=== PATIENT | male | born 1965 | race Caucasian/White ===

== ENCOUNTER → 2018-01-26 | Day surgery (SDC) | payer BC ==
[2018-01-10 15:32] LABS: BASOPHILS # (AUTO) 0.1 (0.0-0.1); BASOPHILS % 0.5 % (0.0-1.0); EOSINOPHILS # (AUTO) 0.3 (0.0-0.4); EOSINOPHILS % 2.5 % (0.0-6.0); HEMATOCRIT 43.5 % (38.2-49.6); HEMOGLOBIN 14.5 g/dL (14.0-18.0); LYMPHOCYTES # (AUTO) 2.2 (1.0-3.2); LYMPHOCYTES % 17.2 % (18.0-39.1); MEAN CORPUSCULAR HEMOGLOBIN 28.8 pg (28-32); MEAN CORPUSCULAR HGB CONC 33.3 g/dL (31-35); MEAN CORPUSCULAR VOLUME 86.5 fL (81-99); MONOCYTES # (AUTO) 0.6 (0.2-0.8); MONOCYTES % 4.6 % (4.4-11.3); NEUTROPHILS # (AUTO) 9.6 (2.1-6.9); PLATELET COUNT 188 x10e3/uL (140-360); RED BLOOD COUNT 5.03 x10e6/uL (4.3-5.7); RED CELL DISTRIBUTION WIDTH 13.2 % (11.7-14.4)
[2018-01-10 15:45] LABS: ANION GAP 12.9 mmol/L (8-16); BLOOD UREA NITROGEN 17 mg/dL (7-26); BUN/CREATININE RATIO 16 (6-25); CALCIUM 9.3 mg/dL (8.4-10.2); CARBON DIOXIDE 29 mmol/L (22-29); CHLORIDE 103 mmol/L (98-107); CREATININE, SERUM 1.07 mg/dL (0.72-1.25); EST GLOMERULAR FILTRATION RATE > 60 ML/MIN (60-); GLUCOSE 103 mg/dL (74-118); POTASSIUM 3.9 mmol/L (3.5-5.1); SODIUM 141 mmol/L (136-145)
[~2018-01-26] MED LIST: ACETAMINOPHEN/CODEINE 300MG - 30MG TAB ONE; AMBIEN10 MG PO; ASPIRIN81 MG PO; ATENOLOL100 MG PO; ATROPINE SULFATE 0.1 MG/ML 10ML SYR ONE; BACITRACIN 50,000 UNIT VIAL ONE; BUPIVACAINE 0.25%/EPI 30ML SDV INJ ONE; CEFAZOLIN SOD 1 GM VIAL ONE; DEXAMETHASONE SOD PHOS INJ 4 MG/ML VIAL ONE; FENTANYL CITRATE/PF 100MCG/2 ML INJ ONE; LIDOCAINE HCL 2% LOCAL INJ 5 ML SDV VIAL INJ ONE; MIDAZOLAM HCL 2 MG/2 ML VIAL ONE; PRAVASTATIN SOD40 MG; PROPOFOL IV EMULSION 10 MG/ML 20 ML VIAL ONE; Z.0.CLONAZEPAM2 MG PO; Z.0.LISINOPRIL10 MG PO; Z.0.PRAVACHOL40 MG PO; Z.0.TOPROL XL25 MG
--- NOTE | 2018-01-26 09:45 | Operative Report ---
DATE OF PROCEDURE: January 26, 2018 PREOPERATIVE DIAGNOSIS: Ventral hernia. POSTOPERATIVE DIAGNOSIS: Ventral hernia. PROCEDURE PERFORMED: Repair of ventral hernia with the Proceed ventral patch, medium size. ANESTHESIA: General. [employer] DEVELOPER: Vanessa Mulligan ESTIMATED BLOOD LOSS: Minimal. DRAINS: None. COMPLICATIONS: None. INDICATIONS AND FINDINGS: The patient is a 52-year-old male who complains of a bulge located superior to the umbilicus for several years, now developed more pain. INTRAOPERATIVE FINDINGS: The patient had a ventral hernia located in the epigastric region superior to and separate from the umbilicus. There was no evidence of umbilical herniation. The defect contained fat and a sac that was empty. The Proceed ventral patch, medium size, was deployed intra-abdominally covering the defect with ample margins in all directions. DESCRIPTION OF PROCEDURE: With the patient lying on the operating table in the supine position, after administration of general anesthesia, he was prepped and draped for repair of an epigastric ventral hernia. An incision was made vertically superior to the umbilicus, and the dissection was carried down until the hernia was identified. It was dissected free from the surrounding tissues. It consisted of a sac with properitoneal fat. All of that was excised. Then the intra-abdominal cavity was entered. Then the Proceed ventral patch mesh was deployed with the mesh laying intra-abdominally flush against the abdominal wall. The mesh was then secured with the straps to the fascia using 2-0 Ethibond suture. Several extra Ethibond stitches were placed in the upper and lower parts of the incision to prevent any herniation and further secure the mesh to the fascia. A Valsalva maneuver was then given, and the mesh was laying flush against the abdominal wall. We cut the excess straps and then loosely approximated the fascia over the mesh to create another barrier to the exterior. Local infiltration was given with 0.25% Marcaine with epinephrine. The wound was irrigated and then closed in layers using 2-0 catgut for the soft tissues. The skin was closed using gildardo. A sterile dressing was applied. The patient tolerated the procedure well and was taken to the recovery room in stable condition. Job#: [id number]
== END | disposition home or self-care (01) ==
LOC: OR 06:40
PROVIDERS: ATTEND Surgery
PROC: 0WUF0JZ Supplement Abdominal Wall with Synthetic Substitute, Open Approach (ICD-10-PCS; principal; 2018-01-26 07:38)
DX: K43.9 Ventral hernia without obstruction or gangrene (principal); I10 Essential (primary) hypertension; E78.5 Hyperlipidemia, unspecified; R06.83 Snoring; Z01.810 Encounter for preprocedural cardiovascular examination; Z01.812 Encounter for preprocedural laboratory examination; Z87.891 Personal history of nicotine dependence
CPT/HCPCS: 36415; 49560; 49568; 80048; 85025; 93005; C1781 ×2; J0690; J1100; J2001; J2250

== ENCOUNTER → 2018-03-09 | Outpatient (CLI) | payer BC ==
[~2018-03-09] MED LIST changes: -ACETAMINOPHEN/CODEINE 300MG - 30MG TAB ONE; -ATROPINE SULFATE 0.1 MG/ML 10ML SYR ONE; -BACITRACIN 50,000 UNIT VIAL ONE; -BUPIVACAINE 0.25%/EPI 30ML SDV INJ ONE; -CEFAZOLIN SOD 1 GM VIAL ONE; -DEXAMETHASONE SOD PHOS INJ 4 MG/ML VIAL ONE; -FENTANYL CITRATE/PF 100MCG/2 ML INJ ONE; +IOPAMIDOL 370 MG/ML 200 ML INFUS..BTL INJ ONE; -LIDOCAINE HCL 2% LOCAL INJ 5 ML SDV VIAL INJ ONE; -MIDAZOLAM HCL 2 MG/2 ML VIAL ONE; -PROPOFOL IV EMULSION 10 MG/ML 20 ML VIAL ONE; +SODIUM CHLORIDE 0.9% 50ML 50 ML ONE
[2018-03-09 15:40] LABS: BLOOD UREA NITROGEN 16 mg/dL (7-26); BUN/CREATININE RATIO 19 (6-25); CREATININE, SERUM 0.84 mg/dL (0.72-1.25); EST GLOMERULAR FILTRATION RATE > 60 ML/MIN (60-)
--- NOTE | 2018-03-11 20:06 | Diagnostic Imaging Report ---
History: Right submandibular mass Comparison studies: None Technique: Axial, coronal and sagittal images from the skull base to the thoracic inlet. Coronal and sagittal images reconstructed from the axial data. Intravenous contrast: 100 cc of Omnipaque 300. Findings: Airway: Patent. Soft tissues: A approximately 3.0 x 2.6 x 2.8 cm (SI-[id number]) well-circumscribed, nonenhancing, noncalcified, homogeneously hypodense mass in the right inferior facial soft tissues (lateral to the right submandibular gland) if not associated with inflammatory changes in the surrounding fat. It focally elevates the skin and focally displaces the platysma muscle posteromedially. Lymph nodes: No radiographically significant adenopathy. Vessels: Punctate non-stenosing atherosclerotic calcifications at the carotid bulbs. Otherwise, no vascular abnormalities. Glands (thyroid, parotid and submandibular): Normal in size and symmetric. No masses. Orbits: No abnormalities. Paranasal sinuses: Focal mucosal thickening in the right sphenoid and maxillary sinuses. Otherwise clear Temporal bones: No abnormalities. Skull base and facial bones: Intact. Cervical spine: Moderately degenerated disks at C5-6 and C6-7. Foraminal stenosis, mild left at C4-5, severe bilaterally at C5-6 and C6-7 is due to facet and uncovertebral arthrosis. Spinal canal stenosis moderate from C5 to C7 due to disc osteophyte complexes. Incidental minimal bullous changes in the lung apices. IMPRESSION: 1. Superficial mass in the right inferior facial soft tissues (lateral to the right submandibular gland) is nonspecific but probably an inclusion cyst. 2. Degenerative cervical spinal canal and foraminal stenosis as described. 3. Otherwise, no significant abnormalities. Signed by: Dr. Dao Mclean M.D. on 03/11/2018 8:02 PM
== END ==
LOC: CT 14:47
PROVIDERS: ATTEND Internal Medicine
DX: D17.0 Benign lipomatous neoplasm of skin and subcutaneous tissue of head, face and neck (principal)
CPT/HCPCS: 36415; 70491; 82565; 84520; Q9967

== ENCOUNTER → 2019-12-05 | Outpatient (CLI) | payer OTHER ==
[~2019-12-05] MED LIST changes: -IOPAMIDOL 370 MG/ML 200 ML INFUS..BTL INJ ONE; +LIPITOR20 MG PO; -SODIUM CHLORIDE 0.9% 50ML 50 ML ONE; +WELLBUTRIN SR100 MG PO
--- NOTE | 2019-12-05 14:33 | Diagnostic Imaging Report ---
MRI of the left shoulder without contrast. History: Shoulder pain. Decreased range of motion. Rotator cuff tear. Comparison: None Technique: Coronal PD FS, sagital PD FS, and axial PD and PD FS. Findings: Rotator cuff: Rotator cuff tendinosis with small full-thickness tear involving the anterior fibers of the supraspinatus tendon at the humeral insertion site best seen on sagittal image 4 through 6 and coronal image 9 through 11. Minimal retraction of the torn fibers and mild supraspinatus muscle atrophy. Additionally, there is infraspinatus and subscapularis tendinosis. The teres minor tendon is intact. Osseous acromion complex: Type II acromion with mild lateral downsloping. Moderate degenerative arthrosis at the acromioclavicular joint with undersurface spurring and narrowing of the supraspinatus tendon outlet. Mild subacromial/subdeltoid bursitis. Glenohumeral joint: Degeneration and fraying of the labrum. Articular cartilage fraying and deep fissuring most pronounced at the posterior glenoid with subchondral cystic change and mild bone marrow edema. The humeral head is well-seated in the glenoid fossa. Biceps tendon: Intra-articular biceps tendinosis with fraying at the biceps anchor. Other findings: Negative for muscle denervation or osseous fracture. Impression: Rotator cuff tendinosis with small full-thickness tear involving the anterior fibers of the supraspinatus tendon at the humeral insertion site. Articular cartilage fraying and deep fissuring most pronounced at the posterior glenoid with subchondral cystic change and mild bone marrow edema. Moderate degenerative arthrosis at the acromioclavicular joint with undersurface spurring and narrowing of the supraspinatus tendon outlet. Mild subacromial/subdeltoid bursitis Signed by: Dr. Thierry Snyder M.D. on 12/05/2019 2:31 PM
== END ==
LOC: MRI 13:36
PROVIDERS: ATTEND Specialist
DX: M75.122 Complete rotator cuff tear or rupture of left shoulder, not specified as traumatic (principal)